=== PATIENT | female | born 1960 | race Caucasian/White ===

== ENCOUNTER 2016-07-16 14:05 | Emergency (ER) | payer MEDICAID ==
[~2016-07-16] VITALS: Ht 152.4 cm; Wt 68.5 kg
[2016-07-16 18:03] VITALS: BP 142/92
== END 2016-07-16 18:03 | disposition home or self-care (01) ==
LOC: ED 14:05
DX: M54.42 Lumbago with sciatica, left side (principal); M79.672 Pain in left foot; R03.0 Elevated blood-pressure reading, without diagnosis of hypertension; Z79.1 Long term (current) use of non-steroidal anti-inflammatories (NSAID)
CPT/HCPCS: J1885